=== PATIENT | female | born 1985 | race Caucasian/White ===

== ENCOUNTER 2024-10-29 13:46 | Emergency (ER) | payer MEDICAID, SELFPAY ==
[2024-10-29 14:00] VITALS: BP 135/91; PULSE 92; RESP 18; TEMP 36.6; O2SAT 98; BMI 24.3
--- NOTE | 2024-10-29 15:00 | EDNOTE_ITS ---
ED General RME/HPI General Chief complaint: General Adult/Misc Complain Stated complaint: VAGINAL ODOR TIMES 1 WEEK Time Seen by Provider: 10/29/24 14:10 Arrival date/time: 10/29/24 13:46 38-year-old female reports with complaints of stuck or lost tampon x 2 to 3 days. Patient denies any fever chills dysuria urinary urgency frequency hematuria pelvic pain nausea or vomiting. Patient reports having a bad odor from the vaginal area and believes it is due to the lost tampon. Patient denies any other foreign objects or taken any medications Limitations: no limitations Related Data Home Medications ?Medication ?Instructions ?Recorded ?Confirmed No Known Home Medications 02/16/23 02/16/23 Allergies Allergy/AdvReac Type Severity Reaction Status Date / Time codeine Allergy Verified 10/29/24 13:49 Review of Systems Constitutional Constitutional: Denies chills, Denies fever(s) and Denies headache(s) ENT Ears, Nose, Mouth, and Throat: Denies dizziness and Denies headache(s) Gastrointestinal Gastrointestinal: Denies nausea and Denies vomiting Genitourinary Genitourinary: Reports vaginal odor and Reports other (Tampon dislodged in vagina) Musculoskeletal Musculoskeletal: Denies back pain and Denies myalgias Integumentary/Breasts Skin/Breast: Denies unusual bruising and Denies wounds Neurologic Neurologic: Denies dizziness and Denies headache(s) Hematologic/Lymphatic Hematologic/Lymphatic: Denies easy bleeding and Denies easy bruising Past Medical History Past Medical History NEUROLOGIC: Negative Neurological Disorders CARDIAC: Negative Cardiac Disorders or Congestive Heart Failure RESPIRATORY: Negative Chronic Obstructive Pulmonary Disease (COPD) or Asthma GASTROINTESTINAL: Negative Gastrointestinal Disorders GENITOURINARY: Negative Genitourinary Disorders or Renal Disease MUSCULOSKELETAL: Negative Musculoskeletal Disorders ENDOCRINE: Negative Endocrine Disorders, Diabetes Mellitus Type 1 or Diabetes Mellitus Type 2 HEMATOLOGIC: Negative Blood Disorders or Sickle Cell Disease PSYCHO/SOCIAL: Positive Recreational Drug Use, Depression and Anxiety OTHER HISTORY: Negative Blood Transfusions or Cancer Family History FAMILY HISTORY: Negative Family Neurologic Problems, Family Psychiatric Problems, Family Respiratory Disorders, Family Cardiac Disorders, Family Gas trointestinal Problems, Family Cancer, Family Surgery or Family Anesthesia Reaction Surgical History SURGICAL: Positive Section Social History SMOKING STATUS: Current every day smoker SUBSTANCE USE: heroin (Several times daily (states she is not shooting anything currently)) and methamphetamine (smokes only) ED Exam General Limitations: Present no limitations General appearance: Present alert and in no apparent distress Abdominal Exam Abdominal exam: Present soft and normal bowel sounds External exam: Present normal external exam and erythema Speculum exam: Present foreign body; Absent vaginal discharge Bimanual exam: Present normal bimanual exam; Absent cervical motion tenderness, adnexal tenderness or adnexal mass Back Exam Back exam: Present normal inspection and full ROM Neurological Exam Neurological exam: Present alert, oriented X3 and CN II-XII intact Psychiatric Psychiatric exam: Present normal affect and normal mood Skin Skin exam: Present warm, dry, intact and normal color Course Course Course Narrative: 38-year-old female reports with complaints of dislodged tampon in the vagina. Tampon was located and removed in its entirety no other foreign bodies were noted. Patient reports tampon only lost 24 to 48 hours she is asymptomatic afebrile nontoxic-appearing with stable vital signs will be discharged home without antibiotics as it does not appear to be warranted at this time Quality Measures none Vital Signs Vital signs: Vital Signs Temperature 97.9 F 10/29/24 14:00 Pulse Rate 92 10/29/24 14:00 Respiratory Rate 18 10/29/24 14:00 Blood Pressure 135/91 H 10/29/24 14:00 Pulse Oximetry (%) 98 10/29/24 14:00 Oxygen Delivery Method Room Air 10/29/24 14:00 MDM Patient data External records reviewed:: None Clinical information provided by:: patient Social determinants that could affect healthcare access:: none Patient has the following chronic illnesses:: none How is presenting disease/condition affected by chronic disease/condition?: no chronic disease Evaluation data The following diagnostics were reviewed and interpreted by me:: other (specify) (none) Lab and/or radiology exams considered but not ordered:: none Interpretation Summary: n/a Medications Medications considered but not ordered:: antibiotics Medication administrations:: none Consultations Consultation(s) initiated? (list below): No Diagnosis Differential Diagnosis ED Complaint MDM: Foreign body in vagina versus bacterial vaginosis versus sexually transmitt Most likely diagnosis given after review of the tests above:: Foreign body in vagina Admission Indicated Admission indicated?: not indicated Explain why admission is indicated or not indicated:: Mild condition Admission Request Was there a request for admission?: No Disposition Plan Disposition Plan: Discharge Discharge Attestation Discharge Attestation: The patient and all family members were given an opportunity to ask questions and understood the discharge instructions. Discharge instructions specifically effects, indications for sooner follow up or return to the emergency department, and the expected course of current diagnosis. Patient condition: Stable Medical Decision Making Differential Diagnosis Differential Diagnosis: Foreign body in vagina versus bacterial vaginosis versus sexually transmitt Discharge Plan Plan Patient Disposition: HOME (Self Care) Prescriptions/Referrals Prescriptions/Med Rec: No Action No Known Home Medications Problem List Clinical Impression: Acute foreign body of vagina Patient/Caregiver Discharge Instructions Discharge Activity: activity as tolerated Education Materials: ED FOREIGN BODY Vaginal Adult Print Language: Hong Konger Stand Alone Forms: Willa Award Info., Patient Portal Info Letter
== END 2024-10-29 15:05 | disposition home or self-care (01) ==
LOC: SERX 15:10
PROVIDERS: Emergency Provider Emergency Medicine; PCP Physician Assistant
DX: T19.2XXA Foreign body in vulva and vagina, initial encounter (principal); W44.8XXA Other foreign body entering into or through a natural orifice, initial encounter
CPT/HCPCS: 99283

== ENCOUNTER 2024-11-09 10:22 | Emergency (ER) | payer MEDICAID, SELFPAY ==
[2024-11-09 10:24] VITALS: BMI 24.0
--- NOTE | 2024-11-09 10:24 | EDNOTE_ITS ---
ED Overdose RME/HPI General Chief Complaint: Overdose Stated Complaint: OVERDOSE Time Seen by Provider: 11/09/24 10:28 Arrival date/time: 11/09/24 10:22 RME / HPI RME / HPI Narrative: 39 year old female presents to the ED BIBA from home for overdose. Per medics report, patient found unresponsive by PPD and CPR was administered as well as given 8mg of Narcan IN. On medics arrival patient was a GCS of 3 with strong pulses, ventilation assisted via BVM. No improvement in mental status en route to ED. Prehospital B/P 106/70, HR 98. Shortly after arriving to the ED patient woke up. States she was smoking what she believed to be meth with her boyfriend. Unsure if the meth was laced with other drugs. Denied taking any pills or other drugs. No complaints reported. Related Data Home Medications ?Medication ?Instructions ?Recorded ?Confirmed No Known Home Medications 02/16/23 02/16/23 Allergies Allergy/AdvReac Type Severity Reaction Status Date / Time codeine Allergy Verified 10/29/24 13:49 Review of Systems Review of Systems Narrative Review of Systems: Constitutional: DENIES; Fevers Eyes: DENIES; Loss of vision Head/Ear/Nose: DENIES; Loss of hearing Throat: DENIES; Dysphagia Cardiovascular: DENIES; Chest pain, dyspnea or syncope Respiratory: DENIES; Shortness of breath Gastrointestinal: DENIES; Rectal bleeding or melena. Genitourinary: DENIES; Dysuria (painful or difficult urination) Musculoskeletal: DENIES; Arthralgia (pain in a joint),; Skin: DENIES; Rash Neurological: DENIES; Loss of function or movement Psychiatric: SEE HPI +overdose DENIES; recent major life stressor, emotional problem Endocrinology: DENIES; Weight change Hematologic/Lymphatic: DENIES; Abnormal bruising Allergic/Immunologic: DENIES; Urticaria (hives) Past Medical History Past Medical History PSYCHO/SOCIAL: Positive Recreational Drug Use, Depression and Anxiety Family History FAMILY HISTORY: Negative Family Neurologic Problems, Family Psychiatric Problems, Family Respiratory Disorders, Family Cardiac Disorders, Family Gastrointestinal Problems, Family Cancer, Family Surgery or Family Anesthesia Reaction Surgical History SURGICAL: Positive Section Social History SMOKING STATUS: Current some day smoker SUBSTANCE USE: heroin (Several times daily (states she is not shooting anything currently)) and methamphetamine (smokes only) ED Exam Narrative Physical exam: Physical Exam:?Prehospital course this patient was found unresponsive at the scene evidently CPR was done for short period of time at scene EMS arrived they began bagging the patient gave 8 mg of intranasal Narcan and then transported while bagging to our facility General:?? ? Patient is brought in by EMS with obtundation. Soon after arrival and transfer to the bed she began to wake up and talk and speak full sentences. IVs were established soon after patient was monitored closely with frequent neurochecks over the next hour hour and a half where she remained alert awake and easily arousable The vital signs were reviewed. After arrival she continued to have spontaneous respirations that required no assistance at this time . O2 sats are adequate at the present time. Head & Scalp:?? ? Normocephalic, atraumatic. Face:?? ? Appears normal and is without lesions, deformity. No apparent trauma Ears:??? Left external pinna appears normal. Right external pinna appears normal. Eyes:?? ? The sclera is anicteric. The Left and Right Orbit/Lid/Conjunctiva appears normal without swelling, discoloration or injection. Nose: ? ? The nose is without deformity, discharge or tenderness; Throat: ? ? Appears normal.? The mucous membranes are pink and moist without exudates, redness or mass seen.? The tongue appears normal. Neck: The neck is supple and no apparent mass or adenopathy. Chest: The chest wall is normal in size and symmetry and has no chest wall tenderness or crepitus. The patient displays adequate ventilator effort without retractions, accessory muscle use. Patient has adequate air movement bilaterally with no wheezes and no rales. ? Cardiovascular: Regular rate and rhythm; No murmurs, rubs, or gallops; Gastrointestinal: The abdomen appears normal.? No obvious hernias or mass. The abdomen is soft and benign, non-distended, with no pain, no guarding and no rebound tenderness.? Bowel sounds are present and normal sounding.? No CVA tenderness. Genitourinary: No apparent injury or trauma. Back/Spine: No apparent injury or trauma Extremities/Musculoskeletal/lymphatic:? ? ? The bilateral upper and lower extremities are warm. There is no evidence of arterial? insufficiency. There is no evidence of venous insufficiency/edema. The patient is obtunded but displays no obvious focal deficits and spontaneously moves bilateral upper and lower extremities with painful or verbal stimuli There is no apparent, injury or trauma. Skin:? The skin is warm, dry and intact.? No rashes. No petechia. No purpura. No abnormal bruising.? The color is appropriate with no cyanosis. Mental status/Psychiatric: Mental status is obtunded no further evaluation can be made Neurological:? The patient is obtunded. As mentioned above but after evidently the 8 mg of Narcan settled inn>> she was fully alert and awake. She denied using any opioids or any drugs but then admitted to using meth. But second ambulance came in soon after bringing up another person from the same scene who stated he was smoking or inhaling meth with fentanyl. And stated the other person was at the scene with her doing the same. IE>> this patient The pupils are equal and reactive to light No obvious focal deficits. Patient responds to painful and verbal stimuli. Course Quality Measures none Orders Category Date Time Status Bedside Blood Glucose NOW Care 11/09/24 10:28 Active EKG (ED ONLY) *Do not use* NOW Care 11/09/24 10:28 Completed Miscellaneous Nursing Order NOW Care 11/09/24 10:29 Active Miscellaneous Nursing Order NOW Care 11/09/24 15:[address] head/brain wo con Stat Exams 11/09/24 10:28 Completed EKG (ED Only) Stat Exams 11/09/24 10:28 Ordered XR chest 1V portable Stat Exams 11/09/24 10:28 Completed Acetaminophen Stat Lab 11/09/24 10:32 Completed Alcohol, Blood Medical Stat Lab 11/09/24 10:32 Completed Ammonia Stat Lab 11/09/24 10:43 Completed B-Type Natriuretic Peptide Stat Lab 11/09/24 10:37 Completed Blood Culture (Lab) Stat Lab 11/09/24 10:37 Received CBC Stat Lab 11/09/24 10:32 Completed Comprehensive Metabolic Panel Stat Lab 11/09/24 10:32 Completed Drug Screen,Urine Stat Lab 11/09/24 15:15 Completed Lactate (Lactic Acid) Stat Lab 11/09/24 10:32 Completed Lactic Acid, 3 HR Stat Lab 11/09/24 14:05 Completed Procalcitonin Stat Lab 11/09/24 10:32 Completed Prothrombin Time with INR Stat Lab 11/09/24 10:32 Completed Salicylate Stat Lab 11/09/24 10:32 Completed Troponin I Stat Lab 11/09/24 10:32 Completed Type and Screen Stat Lab 11/09/24 10:43 Completed Urinalysis Stat Lab 11/09/24 15:15 Completed Urinalysis, C/S if Indicated Stat Lab 11/09/24 15:15 Completed Venous Blood Gas Stat Lab 11/09/24 10:32 Completed Sodium Chloride 0.9% 1000 ml [Ns] 1,000 ml Med 11/09/24 10:28 Discontinued IV 1,000 mls/hr Vital Signs Vital signs: Vital Signs Temperature 98.3 F 11/09/24 10:31 Pulse Rate 113 H 11/09/24 10:31 Respiratory Rate 18 11/09/24 10:31 Blood Pressure 159/88 H 11/09/24 10:31 Pulse Oximetry (%) 97 11/09/24 10:31 Oxygen Delivery Method Room Air 11/09/24 10:31 Pulse ox is 97% on room air which is adequate. Overdose MDM Narrative MDM Narrative:: IAshli am scribing for and in the presence of Dr. Quijano. Medical workup for altered mental status and overdose was launched note this patient's mental status was unresponsive on arrival but she started waking up soon after arrival presumably because the intranasal Narcan was kicking in. We eventually got IVs after arrival but did not require any further Narcan as her mental status stayed adequate and was observed with multiple neuro checks multiple reevaluations by myself over the following couple hours. Medical workup is as follows. Chest x-ray soon after arrival reveals portable chest x-ray with poor inspiration but there is no obvious infiltrates or effusion normal heart silhouette. CT scan of the head reveals no acute bleeding trauma or fracture. Refer to the official report. Tylenol levels came back less than 2 salicylate levels less than 3 ethyl alcohol level was 0. Procalcitonin was negative BNP was negative troponin was negative lactic acid came back at 0.9. BUN 12 creatinine 1.0. Sodium 136 potassium 4 chloride 103 CO2 23.8. Venous blood gas soon after I was pH is 7.28 pCO2 of 52 and after that was drawn patient was much more alert and presumably has normalized. White count came back at 8.2 hemoglobin of 13.6 platelet count of 208,000. Patient has been reevaluated multiple times and mental status remains good and at 1640 hrs. patient is alert awake sitting at bedside talking to her boyfriend. Urine came back positive for methamphetamine and fentanyl and marijuana. Patient informed that she is planning to go to rehab with her boyfriend and have plans to leave here after their discharge. Patient understands that she had today and they resuscitated her with Narcan. She has no chest wall pain no tenderness evidently there might have been some minimal bystander CPR. Her breathing is good she has no complaints her vital signs remain good Patient's been observed for 6 hours since arrival mental status is steadily improved there is no evidence of rebound and the Narcan clearly is beyond its 5 half-lives. Patient does not appear to have any other acute problem. Note her urine is a nonclean-catch specimen with lots of squames Patient was advised at great length knows to return and is eating and feels great at the time of discharge. Patient data External records reviewed:: [facility] previous records (I reviewed ED visit on 10/29/2024) and EMS form Clinical information provided by:: patient and EMS (Provided prehospital course) Social determinants that could affect healthcare access:: substance use (Methamphetamine ) Patient has the following chronic illnesses:: Hx of overdose in the past How is presenting disease/condition affected by chronic disease/condition?: exacerbated by Evaluation data The following diagnostics were reviewed and interpreted by me:: lab results, radiology exam(s) and EKG tracing(s) (Sinus rhythm, rate 81, no STEMI. ) Lab and/or radiology exams considered but not ordered:: None Interpretation Summary: Ordering Physician: George Quijano MD Date of Service: 11/09/24 Procedure(s): XR chest 1V portable Accession Number(s): [id number] cc: George Quijano MD; Jordan Perez MD; WILLARD LAMAR~ Examination: AP chest single view Technique one AP portable upright chest single view Exam date and time: November 09, 2024 1034 hours Comparison 08/07/2016 INDICATIONS: Onset chest pain today. FINDINGS: Normal heart size No pneumonia or pulmonary edema Stable calcified granuloma right lower lobe Intact osseous structures IMPRESSION: No pneumonia or pulmonary edema Dictated By: Jordan Perez MD Signed By: <Electronically signed by Jordan Perez MD in OV> 12/19/24 1105 Ordering Physician: George Quijano MD Date of Service: 11/09/24 Procedure(s): CT head/brain wo con Accession Number(s): [id number] cc: George Quijano MD; Jordan Perez MD; WILLARD LAMAR~ Examination: CT brain head without contrast. 2-D sagittal coronal reconstructions Date and time of exam:November 09, 2024 1046 hours INDICATIONS: Loss of consciousness episode today CTDI: vol (mGy):52.6 DLP: (mGycm):1175 Technique: Multiple CT axial sections of the brain have been obtained, 5 mm slice thickness. Contrast has not been administered. 2-D sagittal, coronal reconstructions have been obtained Low dose protocols were performed. One or more of the following dose reduction techniques were used; automated exposure control, adjustment of the mA and/or KV according to patient size, use of iterative reconstruction technique. Findings: No significant ventricular enlargement. Intra-axial or extra-axial hemorrhage density is not seen. No mass effect or midline shift Basal cisterns are not remarkable. Fourth ventricle is midline. Cranial vault intact. Impression: Negative for acute hemorrhage, mass effect or midline shift Clinical correlation advised and follow-up accordingly Dictated By: Jordan Perez MD Signed By: <Electronically signed by Jordan Perez MD in OV> 11/09/24 1104 Medications / Prescriptions Medications or Prescriptions considered but not ordered:: None Medication administrations:: Medication Administration History Discontinued Medications Sodium Chloride (Ns) 1,000 mls @ 1,000 mls/hr IV .Q1H ONE Stop: 11/09/24 11:27 Last Infusion: 11/09/24 12:08 Dose: Infused Documented By: Admin: 11/09/24 11:08 Dose: 1,000 mls/hr Documented By: KHADRA See above Consultations Consultation(s) initiated? (list below): No Diagnosis Overdose Differential Diagnosis: drug overdose, accidental drug ingestion and other (Fentanyl overdose, methamphetamine abuse) Most likely diagnosis given after review of the tests above:: Respiratory distress Opioid overdose Admission Indicated Admission indicated?: not indicated Admission Request Was there a request for admission?: No Disposition Plan Disposition Plan: Discharge Discharge Attestation Discharge Attestation: The patient and all family members were given an opportunity to ask questions and understood the discharge instructions. Discharge instructions specifically effects, indications for sooner follow up or return to the emergency department, and the expected course of current diagnosis. Patient condition: Stable Critical Care Time Critical Care Time Critical Care Time: Yes Total Critical Care Time (min.): 55 Attestation: The high probability of sudden, clinically significant deterioration in the patient's condition required the highest level of my preparedness to intervene urgently. The services I provided to this patient were to treat and/or prevent clinically significant deterioration. Services included the following: chart data review, reviewing nursing notes and/or old charts, documentation time, software consultant collaboration regarding findings and treatment options, medication orders and management, direct patient care, vital sign assessments and ordering, interpreting and reviewing diagnostic studies and lab tests. Aggregate critical care time includes only time during which I was engaged in work directly related to the patient's care, as described above, whether at bedside or elsewhere in the Emergency Department. It did not include time spent performing other reported procedures or the services of residents, students, nurses or physician assistants. Patient required my attention mid on arrival and possible intubation but fortunately she began to wake up soon after arrival. Discharge Plan Plan Patient Disposition: HOME (Self Care) Prescriptions/Referrals Prescriptions/Med Rec: No Action No Known Home Medications Referrals: Willard Lamar PA-C [Primary Care Provider] - In 1 week Problem List Clinical Impression: Respiratory arrest, Opioid overdose, Methamphetamine abuse, Accidental fentanyl overdose Patient/Caregiver Discharge Instructions Additional Instructions: As we discussed you almost today from a fentanyl overdose and thankfully paramedics got there in time and saved you. Please stop using drugs as we discussed. Please continue with your intentions of getting into rehab today and [facility]. Return if you get worse in any way. Print Language: [place] Stand Alone Forms: Willa Award Info., Patient Portal Info Letter
--- NOTE | 2024-11-09 10:28 | EKG_ITS ---
[facility] Test Date: 2024-11-09 Pat Name: MARITA ALTAMIRANO Department: Room: - Gender: Female Floor Person: : 1985 Requested By: George Quijano Order Number: [id number] Reading MD: George Quijano Measurements Intervals [place] Rate: 81 P: 75 DC: 185 QRS: 64 QRSD: 92 T: 35 QT: 372 QTc: 432 Interpretive Statements SINUS RHYTHM POSSIBLE LEFT ATRIAL ENLARGEMENT [-0.1mV P WAVE IN V1/V2] No previous ECG available for comparison /store/S0/[id number]/[id number].pdf
--- NOTE | 2024-11-09 10:28 | XR_ITS ---
Examination: CT brain head without contrast. 2-D sagittal coronal reconstructions Date and time of exam:November 09, 2024 1046 hours INDICATIONS: Loss of consciousness episode today CTDI: vol (mGy):52.6 DLP: (mGycm):1175 Technique: Multiple CT axial sections of the brain have been obtained, 5 mm slice thickness. Contrast has not been administered. 2-D sagittal, coronal reconstructions have been obtained Low dose protocols were performed. One or more of the following dose reduction techniques were used; automated exposure control, adjustment of the mA and/or KV according to patient size, use of iterative reconstruction technique. Findings: No significant ventricular enlargement. Intra-axial or extra-axial hemorrhage density is not seen. No mass effect or midline shift Basal cisterns are not remarkable. Fourth ventricle is midline. Cranial vault intact. Impression: Negative for acute hemorrhage, mass effect or midline shift Clinical correlation advised and follow-up accordingly
--- NOTE | 2024-11-09 10:28 | XR_ITS ---
Examination: AP chest single view Technique one AP portable upright chest single view Exam date and time: November 09, 2024 1034 hours Comparison 08/07/2016 INDICATIONS: Onset chest pain today. FINDINGS: Normal heart size No pneumonia or pulmonary edema Stable calcified granuloma right lower lobe Intact osseous structures IMPRESSION: No pneumonia or pulmonary edema
[2024-11-09 10:31] VITALS: BP 159/88; PULSE 113; RESP 18; TEMP 36.8; O2SAT 97
--- NOTE | 2024-11-09 10:36 | PC.NURSE ---
pt became responsive once she entered the room. pt alert and oriented gcs 15, no signs of distress noted. pt denies sob, dizziness, chest pain at this time
[2024-11-09 10:38] LABS: Base Excess, Venous -3 (-3-3); O2 Saturation, Venous 84 % (96-97); PCO2, Venous 52 mmHg (36-56); PO2, Venous 54 mmHg (15-58); pH, Venous 7.28 (7.33-7.66)
[2024-11-09 10:39] LABS: Lactate (Lactic Acid) 2.5 mMol/L (0.4-2.0)
[2024-11-09 10:40] LABS: Basophils % (Auto) 0 % (0-2.5); Eosinophils % (Auto) 0 % (0-10); Hematocrit 39.2 % (36.0-46.0); Hemoglobin 13.6 g/dL (12.0-16.0); Immature Granulocytes % (Auto) 0 % (0-0); Immature Granulocytes Auto 0.02 Thou/mm3 (0.00-0.00); Lymphocytes # (Auto) 2.9 Thou/mm3 (1.0-4.8); Lymphocytes % (Auto) 35 % (10-50); Mean Corpuscular HGB Conc 34.7 g/dl (31.0-37.0); Mean Corpuscular Volume 87 fL (80-100); Monocytes # (Auto) 0.8 Thou/mm3 (0.0-0.8); Monocytes % (Auto) 9 % (0-12); Neutrophils # (Auto) 4.5 Thou/mm3 (1.8-7.7); Neutrophils % (Auto) 55 % (37-80); Nucleated Red Blood Cell % 0 /100 WBC (0); Platelet Count 208 Thou/mm3 (140-440); RDW Standard Deviation 40.6 fL (36.4-46.3); Red Blood Count 4.53 Miln/mm3 (4.00-5.20); White Blood Count 8.2 Thou/mm3 (3.6-11.0)
[2024-11-09 11:07] LABS: Acetaminophen < 2.0 mcg/mL (10.0-20.0); Alanine Aminotransferase 40 U/L (10-49); Albumin, Serum 4.4 gm/dL (3.5-5.0); Albumin/Globulin Ratio 1.4 (1.2-2.2); Alcohol, Blood Medical < 3.0 mg/dL (0-10.0); Alkaline Phosphatase 85 U/L (46-116); Anion Gap 9 (7-16); Aspartate Amino Transferase 44 U/L (0-34); BUN/Creatinine Ratio 12 Ratio (12-20); Bilirubin,Total 0.5 mg/dL (0.3-1.2); Blood Urea Nitrogen 12 mg/dL (9-23); Calcium 9.4 mg/dL (8.3-10.6); Calcium (Corrected) 9.4 mg/dL (8.5-10.1); Carbon Dioxide 23.8 mMol/L (20.0-31.0); Chloride 103 mMol/L (98-107); Estimated Creatinine Clearance 75.4 mL/min (>60); Globulin 3.2 gm/dL (2.3-3.5); Glucose 171 mg/dL (74-106); Osmolality,Calculated 275 (275-295); Procalcitonin < 0.04 ng/ml (0.0-0.49); Salicylate < 3.0 mg/dL; Sodium 136 mMol/L (136-145); Total Protein 7.6 gm/dL (5.7-8.2); Troponin I < 0.002 ng/mL (0.0-0.045); eGFR > 60 See Note
[2024-11-09] MEDS: SODIUM CHLORIDE 0.9% 1000 ML 1,000 ML IV (11:08)
[2024-11-09 11:12] LABS: Ammonia 14 uMol/L (11-32)
[2024-11-09 11:18] LABS: B-Type Natriuretic Peptide 26 pg/mL (0-100)
[2024-11-09 11:40] LABS: Prothrombin Time 10.8 Seconds (9.0-12.2)
[2024-11-09 12:37] VITALS: BP 122/76; PULSE 79; RESP 14; TEMP 36.8; O2SAT 97
[2024-11-09 13:35] LABS: Reflex Lactate? Y
[2024-11-09 14:22] LABS: Lactic Acid, 3 HR 0.9 mMol/L (0.4-2.0)
[2024-11-09 15:33] LABS: Collection Type, Urine Clean Catch
[2024-11-09 16:05] LABS: Bacteria,Urine 1+; Bilirubin,Urine Negative (Negative); Blood,Urine Negative (Negative); Color,Urine Yellow (Lt Yel-Yel); Culture Indicated,Urine Contaminated; Glucose, Urine Negative (Negative); Ketones,Urine Trace (Negative); Leukocyte Esterase,Urine Negative (Negative); Nitrite,Urine Positive (Negative); Protein,Urine 1+ (Neg - Trace); RBC,Urine 1 /hpf (0-3); Specific Gravity,Urine 1.023 (1.001-1.035); Squamous Epithelial Cell,Urine 25 /hpf (0-5); WBC,Urine 11 /hpf (0-5)
[2024-11-09 16:16] LABS: Amphetamine/Methamp Scrn,U Positive (Negative); Barbiturate Screen,Urine Negative (Negative); Benzodiazepines Screen,Urine Negative (Negative); Benzoylecgonine Screen, Ur Negative (Negative); Fentanyl Screen,Urine Positive (Negative); Opiate Screen,Urine Negative (Negative); THC Screen,Urine Positive (Negative)
[2024-11-09 16:29] LABS: Clarity,Urine Hazy (Clear/Hazy)
== END 2024-11-09 17:21 | disposition home or self-care (01) ==
PROVIDERS: Emergency Provider Emergency Medicine; PCP Physician Assistant
DX: T40.2X1A Poisoning by other opioids, accidental (unintentional), initial encounter (principal); T40.411A Poisoning by fentanyl or fentanyl analogs, accidental (unintentional), initial encounter; R09.2 Respiratory arrest; F15.10 Other stimulant abuse, uncomplicated; R07.9 Chest pain, unspecified; R94.31 Abnormal electrocardiogram [ECG] [EKG]
CPT/HCPCS: 36415; 70450; 71045; 80053; 80307; 80320; 80329; 81001; 82140; 82803; 83605; 83880; 84145; 84484; 85025; 85610; 86850; 86900; 86901; 87040; 93005; 96360; 99284; J7030; G0480